=== PATIENT | female | born 1985 | race Caucasian/White ===

== ENCOUNTER 2016-05-09 03:15 | Inpatient (IN) | payer MEDICAID ==
[~2016-05-09] VITALS: Ht 162.6 cm; Wt 54.0 kg
[2016-05-09] MEDS ORDERED: OXYTOCIN/NORMAL SALINE 1,000 ML IV SCH ×2 (04:06→11:59)
[2016-05-09] MEDS ORDERED: LR 1,000 ML IV ONE (04:06)
[2016-05-09 04:13] VITALS: BP_SYST 108; RESP 18; TEMP 98; O2SAT 65
[2016-05-09] MEDS ORDERED: NALBUPHINE HCL 10 MG/ML AMP IVP PRN (04:15)
[2016-05-09] MEDS ORDERED: TERBUTALINE SULFATE 1 MG/ML VIAL SUBCUT ONE (04:15)
[2016-05-09] MEDS ORDERED: AMPICILLIN SODIUM 1 GM in NS 50 ML IV SCH ×2 (04:15→08:15)
[2016-05-09] MEDS ORDERED: AMPICILLIN SODIUM 2 GM in NS 100 ML IV ONE (04:15)
[2016-05-09] MEDS ORDERED: AMPICILLIN SODIUM 2 GM VIAL ONE (04:20)
[2016-05-09 04:28] LABS: BASOPHILS % (AUTO) 0.2 % (0.0-2.0); EOSINOPHILS # (AUTO) 0.1 K/uL (0.0-0.4); EOSINOPHILS % (AUTO) 0.7 % (0.0-4.0); HEMATOCRIT 31.4 % (36-48); HEMOGLOBIN 10.3 g/dL (12.0-16.0); LYMPHOCYTES # (AUTO) 2.2 K/uL (1.0-5.5); LYMPHOCYTES % (AUTO) 25.8 % (20.5-51.5); MEAN CORPUSCULAR HEMOGLOBIN 28 pg (27-31); MEAN CORPUSCULAR HGB CONC 33 % (32-36); MEAN CORPUSCULAR VOLUME 84 fL (79.0-98.0); MONOCYTES # (AUTO) 0.6 K/uL (0.0-1.0); NEUTROPHILS # (AUTO) 5.8 K/uL (1.8-7.7); NEUTROPHILS % (AUTO) 66.3 % (40.0-70.0); PLATELET COUNT (AUTO) 272 K/uL (130-430); RED BLOOD CELL COUNT(AUTO) 3.74 MIL/uL (4.2-6.2); WHITE BLOOD COUNT (AUTO) 8.7 K/uL (4.8-10.8)
[2016-05-09] MEDS ORDERED: fentaNYL CITRATE/PF 100 MCG/2 ML AMP ONE (05:27)
[2016-05-09] MEDS ORDERED: FENT2mCg/mL-ROPIVA0.2%/NS EPID 150 ML EP ONE (05:28)
[2016-05-09] MEDS: LR 1,000 ML IV SCH ×2 (06:00→06:31)
[2016-05-09] MEDS ORDERED: OXYTOCIN/NORMAL SALINE 1,000 ML IV ONE (11:59)
[2016-05-09] MEDS ORDERED: HYDROCORTISONE 0.5%, 28.35 GM TOPICAL CREAM TP PRN (12:00)
[2016-05-09] MEDS ORDERED: DERMOPLAST SPRAY TP PRN (12:00)
[2016-05-09] MEDS ORDERED: GLYCERIN/WITCH HAZEL (TUCKS PADS) TP PRN (12:00)
[2016-05-09] MEDS ORDERED: DOCUSATE SODIUM 100 MG CAPSULE PO PRN (12:00)
[2016-05-09] MEDS ORDERED: LANOLIN 7 GM OINT. TP PRN (12:00)
[2016-05-09] MEDS ORDERED: METHYLERGONOVINE MALEATE 0.2 MG TABLET PO PRN (12:00)
[2016-05-09] MEDS ORDERED: ANUSOL 1 EA SUPP.RECT (PREPARATION H) RC PRN (12:00)
[2016-05-09] MEDS ORDERED: HYDROcodone/ACETAMIN 5-325 MG TAB (NORCO/ VICODIN) PO PRN (12:00)
[2016-05-09] MEDS ORDERED: IBUPROFEN 600 MG TABLET PO ONE (13:00)
[2016-05-09] MEDS: IBUPROFEN 600 MG TABLET PO SCH ×2 (13:25→17:42)
[2016-05-09] MEDS ORDERED: BUPIVACAINE /PF 0.25% 30 ML VIAL INJ ONE ×2 (15:00→20:00)
[2016-05-09] MEDS: MAG-AL HYDROX/SIMETH 30 ML UDC PO PRN (16:20)
[2016-05-09] MEDS: HYDROcodone/ACETAMIN 5-325 MG TAB (NORCO/ VICODIN) PO PRN ×2 (18:51→23:06)
[2016-05-09] MEDS ORDERED: TEMAZEPAM 15 MG CAPSULE PO PRN (21:00)
[2016-05-10] MEDS: IBUPROFEN 600 MG TABLET PO SCH ×2 (00:16→11:59)
[2016-05-10 07:00] LABS: BASOPHILS % (AUTO) 0.3 % (0.0-2.0); EOSINOPHILS % (AUTO) 0.4 % (0.0-4.0); HEMOGLOBIN 9.1 g/dL (12.0-16.0); LYMPHOCYTES # (AUTO) 2.3 K/uL (1.0-5.5); LYMPHOCYTES % (AUTO) 21.8 % (20.5-51.5); MEAN CORPUSCULAR HEMOGLOBIN 28 pg (27-31); MEAN CORPUSCULAR HGB CONC 32 % (32-36); MEAN CORPUSCULAR VOLUME 86 fL (79.0-98.0); MONOCYTES # (AUTO) 0.6 K/uL (0.0-1.0); MONOCYTES % (AUTO) 5.4 % (1.7-9.3); NEUTROPHILS # (AUTO) 7.7 K/uL (1.8-7.7); NEUTROPHILS % (AUTO) 72.1 % (40.0-70.0); PLATELET COUNT (AUTO) 218 K/uL (130-430); RED BLOOD CELL COUNT(AUTO) 3.28 MIL/uL (4.2-6.2); RED CELL DISTRIBUTION WIDTH 13.1 % (9.0-15.0); WHITE BLOOD COUNT (AUTO) 10.6 K/uL (4.8-10.8)
[2016-05-10] MEDS: MAG-AL HYDROX/SIMETH 30 ML UDC PO PRN (08:16)
== END 2016-05-10 14:15 | disposition home or self-care (01) | DRG 560 ==
LOC: SPU 03:15
PROVIDERS: ADMIT Obstetrics & Gynecology; ATTEND Obstetrics & Gynecology
PROC: 10E0XZZ Delivery of Products of Conception, External Approach (ICD-10-PCS; principal; 2016-05-09)
DX: O69.81X0 Labor and delivery complicated by cord around neck, without compression, not applicable or unspecified (principal); Z37.0 Single live birth; Z3A.38 38 weeks gestation of pregnancy
CPT/HCPCS: 36415; 81002-TC; 85025; 86592; 86886; 86900; 86901; A4618; J0290; J2590; J3010; J3490; J7120

== ENCOUNTER 2023-01-16 17:54 | Emergency (ER) | payer MEDICAID ==
[~2023-01-16] VITALS: Ht 162.6 cm; Wt 59.0 kg
[2023-01-16 18:11] VITALS: BP_SYST 137; PULSE 109; RESP 16; TEMP 97.6; O2SAT 98
[2023-01-16 18:52] LABS: BILIRUBIN,URINE NEGATIVE (NEGATIVE); COLOR,URINE YELLOW (YELLOW); GLUCOSE,URINE NEGATIVE (NEGATIVE); KETONES,URINE NEGATIVE (NEGATIVE); LEUKOCYTE ESTERASE ,URINE NEGATIVE (NEGATIVE); NITRITE, URINE NEGATIVE (NEGATIVE); PROTEIN URINE NEGATIVE (NEGATIVE)
[2023-01-16 18:58] LABS: BLOOD, URINE TRACE (NEGATIVE); CLARITY/URINE SLIGHTLY CLOUDY (CLEAR)
[2023-01-16 18:59] LABS: BACTERIA,URINE FEW /HPF (None Seen); WBC,URINE 0-3 /HPF (0-3)
[2023-01-16 19:18] LABS: BASOPHILS % (AUTO) 0.3 % (0.0-2.0); EOSINOPHILS % (AUTO) 0.2 % (0.0-4.0); HEMATOCRIT 30.8 % (36-48); HEMOGLOBIN 9.8 g/dL (12.0-16.0); LYMPHOCYTES # (AUTO) 1.7 K/uL (1.0-5.5); LYMPHOCYTES % (AUTO) 32.7 % (20.5-51.5); MEAN CORPUSCULAR HEMOGLOBIN 27 pg (27-31); MEAN CORPUSCULAR HGB CONC 32 % (32-36); MEAN CORPUSCULAR VOLUME 84 fL (79.0-98.0); MONOCYTES # (AUTO) 0.4 K/uL (0.0-1.0); MONOCYTES % (AUTO) 7.6 % (1.7-9.3); NEUTROPHILS % (AUTO) 59.2 % (40.0-70.0); PLATELET COUNT (AUTO) 481 K/uL (130-430); RED BLOOD CELL COUNT(AUTO) 3.69 MIL/uL (4.2-6.2); RED CELL DISTRIBUTION WIDTH 18.5 % (9.0-15.0); WHITE BLOOD COUNT (AUTO) 5.1 K/uL (4.8-10.8)
[2023-01-16 19:24] LABS: CALCIUM 9.3 mg/dL (8.4-11.0); CREATININE 0.58 mg/dL (0.55-1.30); POTASSIUM 3.4 mmol/L (3.5-5.1)
[2023-01-16 19:28] LABS: ALBUMIN 3.2 g/dL (3.4-4.8); TOTAL BILIRUBIN 0.2 mg/dL (0.0-1.0); TOTAL PROTEIN, SERUM 7.8 g/dL (6.4-8.3)
[2023-01-16] MEDS ORDERED: FAMOTIDINE 20 MG TABLET PO ONE (23:15)
[2023-01-16] MEDS ORDERED: HALOPERIDOL LACTATE 5 MG/ML VIAL IM ONE (23:15)
[2023-01-16] MEDS ORDERED: HALOPERIDOL LACTATE 5 MG/ML VIAL IVP ONE (23:15)
[2023-01-16] MEDS ORDERED: LORazepam 2 MG/ML VIAL IVP ONE (23:15)
[2023-01-16] MEDS ORDERED: LORazepam 1 MG TABLET PO ONE (23:15)
[2023-01-16] MEDS ORDERED: MAG-AL HYDROX/SIMETH 30 ML UDC PO ONE (23:15)
[2023-01-16] MEDS ORDERED: NACL 0.9% 1,000 ML IV ONE (23:15)
[2023-01-16] MEDS ORDERED: DIPHENHYDRAMINE INJ 50 MG/ML VIAL IM ONE ×2 (23:15)
[2023-01-16] MEDS ORDERED: DIPHENHYDRAMINE INJ 50 MG/ML VIAL IVP ONE (23:15)
[2023-01-17] MEDS ORDERED: ONDANSETRON HCL 4 MG/2 ML VIAL IVP ONE (01:15)
[2023-01-17] MEDS ORDERED: MORPHINE 4 MG INJ. 4 MG/ML VIAL IVP ONE (01:15)
[2023-01-17 01:31] VITALS: TEMP 97.6
[2023-01-17] MEDS ORDERED: ONDA-8 TL (03:33)
[2023-01-17] MEDS ORDERED: OMEP40CA20 PO (03:33)
[2023-01-17 04:05] VITALS: BP_SYST 124; PULSE 98; RESP 16; O2SAT 99
== END 2023-01-17 04:05 | disposition home or self-care (01) ==
LOC: SED 17:54
DX: R10.13 Epigastric pain (principal); R11.2 Nausea with vomiting, unspecified; F12.90 Cannabis use, unspecified, uncomplicated; F10.129 Alcohol abuse with intoxication, unspecified; Z79.899 Other long term (current) drug therapy; Y90.6 Blood alcohol level of 120-199 mg/100 ml
CPT/HCPCS: 99284; 96374; 71045; 96375 ×2; 96361; 80053; 81000; 83690; 85025; 36415; 81025; J1200; J1630; J2060; J7030; J2405; J2270